=== PATIENT | female | born 1945 | race Caucasian/White ===

== ENCOUNTER 2017-08-25 13:28 | Outpatient (CLI) | payer MEDICARE ==
--- NOTE | 2017-08-25 14:38 | RAD ---
CHEST PA AND LATERAL: History: 72-year-old female with cough and shortness of breath. FINDINGS: Heart size is normal. The lungs are clear. IMPRESSION: No acute intrathoracic disease. No evidence of pneumonia. POS: [facility]
== END 2017-08-25 13:29 | disposition home or self-care (01) ==
LOC: NAV RAD 13:28
PROVIDERS: ATTEND Internal Medicine
DX: R05 Cough (principal)
CPT/HCPCS: 71046